=== PATIENT | male | born 1930 | race Caucasian/White ===

== ENCOUNTER 2018-03-09 08:47 | Inpatient (IN) | payer MEDICARE, BC ==
[~2018-03-09] VITALS: Ht 165.1 cm; Wt 88.1 kg
--- NOTE | 2018-03-09 08:50 | NUR ---
PT TO ED ROOM 08. BIB RA FROM HOME C/O SOB SINCE LAST NIGHT. A/A/O. PLACED ON NR @ 15 L/M. SIDE RAIS LUP. HOB ELEVATED. CONNECTED TO MONITOR. CHANGED TO PARTH. ALBERTO OLIVAS AT BEDSIDE.
--- NOTE | 2018-03-09 08:55 | NUR ---
Racquel doyle in EDM - 03/09/18 at 0856 by CHELSEA FLAQUITO VAUGHAN (APPEARS LIKE) CECILE. FLASHED WITH 10CC 0.9% NS.
--- NOTE | 2018-03-09 08:56 | NUR ---
LUE MIDLINE (APPEARS LIKE) POA. FLASHED WITH 10CC 0.9% NS.
--- NOTE | 2018-03-09 09:11 | NUR ---
R FA G 20 IV STARTED, BLOOD TESTS DRAWN AND SEND TO [facility]
[2018-03-09] MEDS ORDERED: LORA-259 PO (09:20)
[2018-03-09] MEDS ORDERED: IPRA12.9 INH (09:20)
[2018-03-09] MEDS ORDERED: INSU100V11 SQ (09:20)
[2018-03-09] MEDS ORDERED: CHOL200026 PO (09:20)
[2018-03-09] MEDS ORDERED: APIX2.5T PO (09:20)
[2018-03-09] MEDS ORDERED: ACET-868 PO (09:20)
[2018-03-09] MEDS ORDERED: INSU100V7 SQ (09:20)
[2018-03-09] MEDS ORDERED: FERR325T24 PO (09:20)
[2018-03-09] MEDS ORDERED: HYDR-552 PO (09:20)
[2018-03-09] MEDS ORDERED: MAGN64TA9 PO (09:20)
[2018-03-09] MEDS ORDERED: GABA-532 PO (09:20)
[2018-03-09] MEDS ORDERED: ASPI-992 PO (09:20)
[2018-03-09] MEDS ORDERED: FURO20TA4 PO (09:20)
[2018-03-09] MEDS ORDERED: SIMV40TA5 PO (09:20)
[2018-03-09] MEDS ORDERED: OMEP20TA5 PO (09:20)
[2018-03-09] MEDS ORDERED: DILT360T13 PO (09:20)
[2018-03-09] MEDS ORDERED: CARV6.252 PO (09:20)
[2018-03-09] MEDS ORDERED: FLUT16SP BNOSTRILS (09:20)
[2018-03-09] MEDS ORDERED: CYAN10009 PO (09:20)
[2018-03-09 09:21] LABS: EOSINOPHILS % (AUTO) 0.4 % (0.0-6.0); HEMATOCRIT 28 % (39-51); HEMOGLOBIN 9.3 g/dL (13.5-17.5); LYMPHOCYTES # (AUTO) 1.1 /CMM (0.8-4.8); LYMPHOCYTES % (AUTO) 5.9 % (20.0-44.0); MEAN CORPUSCULAR HGB CONC 33 g/dl (31.0-36.0); MEAN CORPUSCULAR VOLUME 93 fL (80-96); NEUTROPHILS # (AUTO) 15.3 /CMM (1.8-8.9); NEUTROPHILS % (AUTO) 82.7 % (43.0-81.0); PLATELET COUNT (AUTO) 133 /CMM (150-450); RED BLOOD CELL COUNT(AUTO) 3.07 MIL/uL (4.5-6.0); WHITE BLOOD COUNT (AUTO) 18.5 K/uL (4.3-11.0)
--- NOTE | 2018-03-09 09:24 | NUR ---
PT PLACED ON NC @ 3 L/M, SATURATION 94%.
[2018-03-09] MEDS ORDERED: FUROSEMIDE 40 MG/4 ML VIAL IV ONE (09:30)
[2018-03-09 09:34] LABS: CALCIUM, SERUM 8.3 mg/dL (8.5-10.1); CARBON DIOXIDE 29 mmol/L (21-32); CHLORIDE 106 mmol/L (98-107); CREATININE 1.6 mg/dL (0.6-1.3); GLUCOSE 136 mg/dL (74-106); POTASSIUM 4.1 mmol/L (3.5-5.1); SODIUM SERUM 141 mmol/L (136-145); UREA NITROGEN, BLOOD 29 mg/dL (7-18)
[2018-03-09 09:41] LABS: TROPONIN I < 0.017 ng/mL (0.00-0.056)
[2018-03-09 09:43] LABS: INR 1.17 (0.87-1.13)
[2018-03-09 09:45] LABS: ALANINE AMINOTRANSFERASE 30 U/L (12-78); ALBUMIN 2.5 g/dL (3.4-5.0); ALKALINE PHOSPHATASE 197 U/L (46-116); ASPARTATE AMINOTRANSFERASE 50 U/L (15-37); B-TYPE NATRIURETIC PEPTIDE 8815 PG/ML (0-125); BILIRUBIN,DIRECT 0.2 mg/dL (0.0-0.2); BILIRUBIN,TOTAL 0.5 mg/dL (0.2-1.0); TOTAL PROTEIN, SERUM 6.7 g/dL (6.4-8.2)
[2018-03-09 10:06] LABS: ABG BASE EXCESS 2.3 mmol/L; ABG OXYGEN SATURATION 93.1 % (92.0-98.5); ABG PCO2 43.1 mmHg (35.0-45.0); ABG PH 7.417 (7.350-7.450); ABG PO2 71.1 mmHg (75.0-100.0); AaDO2 157.3 mmHg; COHb 0.5 % (0.5-1.5); MetHb 0.6 % (0.0-1.5); O2Hb 92.1 % (94.0-97.0); SITE, ABG Right Radial; VENT MODE, BG NASAL CANNULA
--- NOTE | 2018-03-09 10:55 | NUR ---
REPORT GIVEN TO REGIS YUAN [id number] FLAKO
[2018-03-09] MEDS ORDERED: ONDANSETRON HCL/PF 4 MG/2 ML VIAL IVP PRN (11:00)
[2018-03-09] MEDS ORDERED: MAGNESIUM CHLORIDE 64 MG TABLET.SA PO SCH (11:00)
[2018-03-09] MEDS ORDERED: MAG HYDROX/AL HYDROX/SIMETH 30 ML UDC PO PRN ×2 (11:00→11:15)
[2018-03-09] MEDS ORDERED: ACETAMINOPHEN 325 MG TABLET PO PRN ×4 (11:00→11:15)
[2018-03-09] MEDS ORDERED: ALBUTEROL FS 2.5 MG/0.5 ML VIAL.NEB NEB PRN (11:00)
[2018-03-09] MEDS ORDERED: APIXABAN 2.5 MG TABLET PO SCH ×2 (11:00→11:15)
[2018-03-09] MEDS ORDERED: HYDROCODONE/APAP 5/325MG 1 EACH TABLET PO PRN ×3 (11:00→15:15)
[2018-03-09] MEDS ORDERED: MAGNESIUM HYDROXIDE 30 ML UDC PO PRN ×2 (11:00→11:15)
[2018-03-09] MEDS ORDERED: LORAZEPAM 1 MG TABLET PO PRN (11:00)
[2018-03-09] MEDS ORDERED: IPRATROPIUM NEB FS 0.5 MG/2.5 ML AMPUL.NEB NEB PRN (11:00)
[2018-03-09] MEDS ORDERED: FLUTICASONE PROPIONATE 16 GM BOTTLE NS SCH (11:00)
[2018-03-09] MEDS ORDERED: CARVEDILOL 6.25 MG TABLET PO SCH (11:00)
[2018-03-09] MEDS ORDERED: BUMETANIDE INJ 8 MG in IV NS 0.9% 48 ML IV ONE ×2 (11:00→11:15)
[2018-03-09] MEDS ORDERED: GABAPENTIN 100 MG CAPSULE PO SCH (11:00)
[2018-03-09 11:15] VITALS: BP 141/51
--- NOTE | 2018-03-09 11:15 | NUR ---
TD RN OPENING PATIENT REPORTED TO ER WITH FAMILY FROM HOME FOR INCREASED SOB. RECEIVED PATIENT A/OX2 ANXIOUS WITH LABORED BREATHING ON ACTIVITY. ON 3LPM NC SAT 94%. PATIENT WITH FAMILY AT BEDSIDE AND STATE PATIENT IS DNR/DNI WHICH PATIENT STATES WELL. TELE AFIB 90'S-110'S WITH ACTIVITY. PATIENT NON AMBULATORY SECONDARY TO WEAKNESS PER FAMILY FOR WEEKS. PATIENT PRESENTED TO ER WITH SINGLE LUMEN PICC LINE THAT PER FAMILY WAS INSERTED ABOUT 3-4 WEEKS AGO. CLEAN DRY AND INTACT DRESSING DATED 03/05/18 AND PATENT. PATIENT STATES BREATHING IS BETTER AFTER MEDICATION (LASIX) IN ER. FAMILY STATES THEY DO NOT WANT ANY MORE DIAGNOSTICS COMPLETED OR BLOOD DRAWS PATIENT HAS BEEN IN AND OUT OF HOSPITALS/SNF FOR SAME THING AND IS NOT GETTING ANY BETTER. PER FAMILY PATIENT HAS BEEN ON AX FOR 8 WEEKS FOR BLE CELLULITIS WHICH IS COVERED WITH DRESSING AND WEEPING. PATIENT/FAMILY DO NOT WANT DRESSING CHANGE. ALL NEEDS IN REACH. VS STABLE. SAFETY PRECAUTIONS IN PLACE AND WILL MONITOR. HAILEY UPDATED ON PATIENT AND FAMILY REQUESTS.
[2018-03-09] MEDS: CHOLECALCIFEROL 1,000 UNIT TABLET (VIT D3) PO SCH (11:30)
[2018-03-09] MEDS: PANTOPRAZOLE 40 MG TABLET.DR PO SCH (11:38)
--- NOTE | 2018-03-09 11:45 | NUR ---
TD RN NOTES FAMILY AT BEDSIDE. UPDATING MED RECON. PER FAMILY PATIENT TAKES PAXIL 10 MG DAILY; PER HAILEY OK TO ORDER AND GIVE NOW. PER FAMILY PATIENT TAKES 1/2 5/325 NORCO Q2H; PER HAILEY OK TO ORDER. DR LEDESMA AT BEDSIDE. PER BALTAZAR ORDER DNR/DNI ON PATIENT. FAMILY REFUSING US ABD; DR ORR AWARE. RE ORDERED CARDIAC DIET PER HAILEY. PER HAILEY ORDER MILD ACHS SLIDING SCALE. HAILEY AWARE OF UPDATED MED RECON READY
[2018-03-09] MEDS ORDERED: FEE PK DOSING 1 MIN EA MC ONE (11:52)
[2018-03-09] MEDS ORDERED: PARO10TA86 PO (11:56)
[2018-03-09] MEDS ORDERED: NITR0.4T48 SL (11:56)
[2018-03-09] MEDS ORDERED: MULT-479 PO (11:56)
[2018-03-09 12:00] VITALS: BP 141/51
[2018-03-09] MEDS ORDERED: APIXABAN 2.5 MG TABLET PO ONE ×2 (12:00→17:00)
[2018-03-09] MEDS: BLOOD SUGAR DIAGNOSTIC 1 EACH STRIP IN SCH ×3 (12:30→22:00)
[2018-03-09] MEDS ORDERED: DEXTROSE 50%-WATER 50 ML DISP.SYRIN IV PRN (12:30)
[2018-03-09] MEDS ORDERED: HYDROCODONE/APAP 5/325MG 1 EACH TABLET PO ONE (12:30)
[2018-03-09] MEDS: LORAZEPAM 1 MG TABLET PO PRN ×2 (12:49→23:29)
[2018-03-09] MEDS: PAROXETINE HCL 10 MG TABLET PO SCH (12:49)
[2018-03-09] MEDS: VANCOMYCIN 0.75 GM in IV NS 0.9% 250 ML IV SCH (12:54)
[2018-03-09] MEDS: AZTREONAM 500 MG in IV NS 0.9% 50 ML IV SCH ×2 (12:54→21:00)
--- NOTE | 2018-03-09 12:56 | NUR ---
TD RN NOTES PATIENT AND STATING NO MORE DIAGNOSTICS, AX, OR MEDICATIONS. PATIENT WANTS TO BE COMFORT CARE. HAILEY AWARE AND AT BEDSIDE
[2018-03-09] MEDS ORDERED: AZTREONAM 1 G in IV NS 0.9% 100 ML IV SCH ×4 (13:00)
--- NOTE | 2018-03-09 14:00 | NUR ---
CANCELLED ECHO STUDY FOR PATIENT. HAILEY IS AWARE. PER HIS ADVICE, STATUS CHANGED FROM DNR TO TOTAL PATIENT CARE.
[2018-03-09] MEDS: ONDANSETRON HCL/PF 4 MG/2 ML VIAL IVP PRN (14:13)
[2018-03-09] MEDS: FENTANYL PF 100MCG/2ML AMPUL IV PRN (14:13)
[2018-03-09 15:59] LABS: APPEARANCE,URINE CLEAR (CLEAR); BILIRUBIN,URINE NEGATIVE (NEGATIVE); BLOOD, URINE NEGATIVE Ery/uL (NEGATIVE); COLOR,URINE YELLOW (YELLOW); KETONES,URINE NEGATIVE (NEGATIVE); LEUKOCYTE ESTERASE ,URINE NEGATIVE (NEGATIVE); NITRITE, URINE NEGATIVE (NEGATIVE); PH,URINE 5.5 (5.0-8.0); PROTEIN,URINE NEGATIVE (NEGATIVE); UGLUCOSE NEGATIVE (NEGATIVE); UROBILINOGEN,URINE 0.2 EU/dL (0.2)
[2018-03-09 16:00] VITALS: BP 125/64
[2018-03-09 16:12] LABS: CREATININE, URINE 24.2 MG/DL (30.0-125.0); URINE TOTAL PROTEIN 13.2 mg/dL (0-11.9)
[2018-03-09 16:25] LABS: THYROID STIMULATING HORMONE 4.215 uIU/mL (0.358-3.74)
[2018-03-09] MEDS: CARVEDILOL 6.25 MG TABLET PO SCH (16:30)
[2018-03-09] MEDS: GABAPENTIN 100 MG CAPSULE PO SCH (16:30)
--- NOTE | 2018-03-09 17:10 | NUR ---
PATIENT LINENS CHANGED AND CLEANED. PATIENT REFUSING US TO TAKE OFF UNDERWEAR TO CLEAN OR LOOK AT BOTTOM. LEFT LOWER EXTREMITY IS WEEPING AND COVERED IN PATIENT DRESSING FROM HOME; REFUSING DRESSING CHANGE. PLACED GUERO UNDER PATIENT LEGS TO HELP ABSORB. PATIENT ALLOWED CONDOM CATH; WILL MONITOR FOR PATENCY.
[2018-03-09 17:22] LABS: MAGNESIUM 0.9 mg/dL (1.8-2.4)
--- NOTE | 2018-03-09 17:34 | NUR ---
MS RN NOTES NOTIFIED HAILEY PATIENT MAGNESIUM LEVEL 0.9. EDUCATED ON COMPLICATIONS OF LOW MAG AND PATIENT. REFUSING MAG ADMINISTRATION. HAILEY AWARE.
[2018-03-09 18:29] LABS: EOSINOPHIL,URINE None Seen
[2018-03-09] MEDS: ALBUTEROL FS 2.5 MG/0.5 ML VIAL.NEB NEB SCH (19:14)
[2018-03-09] MEDS: IPRATROPIUM NEB FS 0.5 MG/2.5 ML AMPUL.NEB NEB SCH (19:14)
--- NOTE | 2018-03-09 19:30 | NUR ---
MS/RN NOTES: RECEIVED PT. IN BED SITTING AT THE SIDE OF THE BED W/ PRESENT. W/ O2 @ 2LPM VIA N/C SAT 94%. W/ DAVID PICC LINE SINGLE LUMEN PATENT AND INTACT W/ NO S/S OF INFECTION/INFILTRATION NOTED. W/ PITTING EDEMA NOTED OF BILATERAL LOWER EXTREMITIES. HAD CONDOM CATH INTACT DRAINING CLEAR YELLOW URINE. PT. HAS HOSPICE /COMFORT CARE EVAL. CALL LIGHT W/REACH. WILL CONTINUE TO MONITOR.
--- NOTE | 2018-03-09 19:32 | NUR ---
CLOSING PATIENT CURRENTLY GETTING BREATHING TREATMENT. O2 STABLE ON LOW FLOW OXYGEN. AT BEDSIDE. PATIENT SITTING AT EDGE OF BED AND AWARE WE WILL NOT GIVE FENT. ADMIN UNLESS IN BED DUE TO SAFETY REASONS; PATIENT STATES UNDERSTANDING AND WANTS TO FINISH BREATHING TX. SAFETY PRECAUTIONS IN PLACE. COMFORT NEEDS MET. PER FAMILY HOSPICE CO WILL COME AND EVAL AT 10AM TOMORROW AND DISCUSS DC PLACEMENT WELL. CARE ENDORSED TO KWABENA RAJAN FOR BHARATH
[2018-03-09 20:43] VITALS: BP 139/73
[2018-03-10] MEDS: ALBUTEROL FS 2.5 MG/0.5 ML VIAL.NEB NEB SCH ×4 (01:14→19:52)
[2018-03-10] MEDS: IPRATROPIUM NEB FS 0.5 MG/2.5 ML AMPUL.NEB NEB SCH ×4 (01:14→19:52)
[2018-03-10] MEDS: FENTANYL PF 100MCG/2ML AMPUL IV PRN ×5 (02:17→23:26)
[2018-03-10 03:59] VITALS: BP 133/81
[2018-03-10] MEDS: AZTREONAM 500 MG in IV NS 0.9% 50 ML IV SCH ×4 (05:56→21:50)
[2018-03-10 08:00] VITALS: BP 116/75
[2018-03-10] MEDS: VANCOMYCIN 0.75 GM in IV NS 0.9% 250 ML IV SCH (08:43)
[2018-03-10] MEDS: FLUTICASONE PROPIONATE 16 GM BOTTLE NS SCH (08:45)
[2018-03-10] MEDS: MAGNESIUM CHLORIDE 64 MG TABLET.SA PO SCH (08:46)
[2018-03-10] MEDS: CARVEDILOL 6.25 MG TABLET PO SCH ×2 (08:48→17:00)
[2018-03-10] MEDS: PANTOPRAZOLE 40 MG TABLET.DR PO SCH (08:49)
[2018-03-10] MEDS: PAROXETINE HCL 10 MG TABLET PO SCH (08:49)
[2018-03-10] MEDS: CHOLECALCIFEROL 1,000 UNIT TABLET (VIT D3) PO SCH (08:50)
[2018-03-10] MEDS: GABAPENTIN 100 MG CAPSULE PO SCH ×2 (08:50→17:41)
[2018-03-10] MEDS: BLOOD SUGAR DIAGNOSTIC 1 EACH STRIP IN SCH ×4 (08:50→22:30)
[2018-03-10] MEDS: INSULIN REGULAR, HUMAN 100 UNIT/ML 3 ML VIAL SQ PRN ×3 (09:04→22:48)
[2018-03-10] MEDS: ONDANSETRON HCL/PF 4 MG/2 ML VIAL IVP PRN ×2 (10:40→19:05)
[2018-03-10] MEDS: Magnesium 1GM/D5W 100ML PREMIX 100 ML IV SCH ×4 (11:44→17:40)
[2018-03-10 16:00] VITALS: BP 132/86
--- NOTE | 2018-03-10 19:00 | NUR ---
RN NOTE PT HAD HOSPICE EVALUATION, HE IS PLANNING TO GO HOME TOMORROW, PT FAMILY REFUSED MEDS EXCEPT THOSE FOR COMFORT. MAGNESIUM WAS REPLACED. PAIN MEDS GIVEN ORDERED AROUND THE CLOCK. WILL ENDORSE TO PULP BEATER
[2018-03-10 20:00] VITALS: BP 123/69
[2018-03-10] MEDS: LORAZEPAM 1 MG TABLET PO PRN (21:50)
[2018-03-10] MEDS: HYDROCODONE/APAP 5/325MG 1 EACH TABLET PO PRN (21:54)
[2018-03-11] MEDS: VANCOMYCIN 0.75 GM in IV NS 0.9% 250 ML IV SCH (01:00)
[2018-03-11] MEDS: ALBUTEROL FS 2.5 MG/0.5 ML VIAL.NEB NEB SCH ×3 (01:30→13:30)
[2018-03-11] MEDS: IPRATROPIUM NEB FS 0.5 MG/2.5 ML AMPUL.NEB NEB SCH ×3 (01:30→13:30)
[2018-03-11] MEDS: HYDROCODONE/APAP 5/325MG 1 EACH TABLET PO PRN (02:56)
[2018-03-11 04:00] VITALS: BP 117/73
[2018-03-11] MEDS: AZTREONAM 500 MG in IV NS 0.9% 50 ML IV SCH ×2 (04:09→13:00)
[2018-03-11] MEDS: ONDANSETRON HCL/PF 4 MG/2 ML VIAL IVP PRN (05:27)
[2018-03-11] MEDS: FENTANYL PF 100MCG/2ML AMPUL IV PRN ×3 (05:28→14:56)
[2018-03-11 06:43] LABS: CALCIUM, SERUM 8.3 mg/dL (8.5-10.1); CARBON DIOXIDE 27 mmol/L (21-32); CHLORIDE 104 mmol/L (98-107); CREATININE 1.2 mg/dL (0.6-1.3); GLUCOSE 251 mg/dL (74-106); POTASSIUM 4.3 mmol/L (3.5-5.1); SODIUM SERUM 141 mmol/L (136-145); UREA NITROGEN, BLOOD 26 mg/dL (7-18)
[2018-03-11 08:00] VITALS: BP 139/92
--- NOTE | 2018-03-11 08:00 | NUR ---
MS RN NOTES PATIENT IN BED RESTING NO SOB OR ACUTE DISTRESS NOTED. PATIENT ON COMFORT MEASURES ONLY. PATIENT ALERT, ORIENTED X1. SITTING AT THE SIDE OF HIS BED. BED IN LOW LOCKED POSITION. CALL LIGHT WITHIN REACH. BED IN LOW LOCKED POSITION . PATIENT WITH PICC LINE ON LEFT UPPER ARM INTACT PATENT. WILL CONTINUE TO MONITOR.
--- NOTE | 2018-03-11 08:00 | NUR ---
MS RN NOTES PATIENT IN BED RESTING NO SOB OR ACUTE DISTRESS NOTED. PATIENT ALERT, ORIENTED X1. APPEARS COMFORTABLE. DENIES ANY PAIN. BED IN LOW LOCKED POSITION. CALL LIGHT WITHIN REACH. WITH PICC ON LEFT UPPER ARM INTACT PATENT. WILL CONTINUE TO MONITOR.
[2018-03-11] MEDS: BLOOD SUGAR DIAGNOSTIC 1 EACH STRIP IN SCH ×2 (08:37→12:00)
[2018-03-11] MEDS: CHOLECALCIFEROL 1,000 UNIT TABLET (VIT D3) PO SCH (08:41)
[2018-03-11] MEDS: PAROXETINE HCL 10 MG TABLET PO SCH (08:41)
[2018-03-11] MEDS: PANTOPRAZOLE 40 MG TABLET.DR PO SCH (08:41)
[2018-03-11] MEDS: GABAPENTIN 100 MG CAPSULE PO SCH (08:41)
[2018-03-11] MEDS: CARVEDILOL 6.25 MG TABLET PO SCH (08:41)
[2018-03-11] MEDS: FLUTICASONE PROPIONATE 16 GM BOTTLE NS SCH (08:42)
[2018-03-11] MEDS: MAGNESIUM CHLORIDE 64 MG TABLET.SA PO SCH (08:43)
[2018-03-11] MEDS: INSULIN REGULAR, HUMAN 100 UNIT/ML 3 ML VIAL SQ PRN (08:44)
--- NOTE | 2018-03-11 11:26 | NUR ---
slag worker consult requested by manager farm Pippa Gomez regarding family requesting a spiritual clergy to come see the pt. since pt. is on hospice. Pippa Blue informed SW that pt. is open to a spiritual clergy from any [place]. CRISTOBAL contacted [facility] and spoke to Palma who informed SW that Father Kemar will come by to see the pt. in a few minutes. CRISTOBAL notified pt's RN Sonia.
--- NOTE | 2018-03-11 12:02 | NUR ---
MS RN NOTES PATIENT IN BED RESTING. FAMILY AT BEDSIDE WITH FITNESS CENTER ATTENDANT. WILL CONTINUE TO KEEP COMFORTABLE. FAMILY REFUSES ACCU CHECKS AND ANY KIND OF TREATMENT EXCEPT PAIN MEDICATIONS.
[2018-03-11] MEDS: LORAZEPAM 1 MG TABLET PO PRN (13:49)
[2018-03-11 16:27] VITALS: BP 132/70
--- NOTE | 2018-03-11 16:40 | NUR ---
MS YUAN NOTES PATIENT DISCHARGED HOME WITH [facility] WITH AMBULANCE. PATIENT KEPT COMFORTABLE . PATIENT HOUSE READY FOR PATIENT WITH ALL EQUIPMENT DELIVERED FROM HOSPICE. PATIENT TO BE ADMITTED INTO [facility] AT HOME. ALL DUE MEDICATIONS ADMINISTERED. ALL NEEDS MET. DISCHARGE EDUCATION PROVIDED TO FAMILY, VERBALIZED UNDERSTANDING. PICC LINE NOT REMOVED PER FAMILY REQUEST, MD MADE AWARE. ID BAND REMOVED. PATIENT AND FAMILY REFUSED PICTURES UPON DISCHARGE AGREED FOR WOUND CARE. WOUND CARE PERFORMED TOLERATED WELL. PATIENT TRANSFERRED TO HOME. DISCHARGE PROTOCOL FOLLOWED. Addendum: 03/11/18 at 1714 by BIPIN OWEN RN PATIENT WITH NO BELONGINGS FAMILY TOOK ALL BELONGING HOME, BELONGING LIST SIGNED.
== END 2018-03-11 16:18 | disposition hospice, home (50) | DRG 871 ==
LOC: ER 08:49 → TELE-TD 11:17 → MEDSG1 14:19
PROVIDERS: ADMIT Nurse Practitioner Acute Care; ATTEND Nurse Practitioner Acute Care
DX: A41.9 Sepsis, unspecified organism (principal); J18.9 Pneumonia, unspecified organism; J96.21 Acute and chronic respiratory failure with hypoxia; N17.0 Acute kidney failure with tubular necrosis; I50.33 Acute on chronic diastolic (congestive) heart failure; D68.59 Other primary thrombophilia; E11.22 Type 2 diabetes mellitus with diabetic chronic kidney disease; I13.0 Hypertensive heart and chronic kidney disease with heart failure and stage 1 through stage 4 chronic kidney disease, or unspecified chronic kidney disease; J44.0 Chronic obstructive pulmonary disease with (acute) lower respiratory infection; L03.90 Cellulitis, unspecified; I27.20 Pulmonary hypertension, unspecified; E83.42 Hypomagnesemia; I48.91 Unspecified atrial fibrillation; D63.8 Anemia in other chronic diseases classified elsewhere; I25.10 Atherosclerotic heart disease of native coronary artery without angina pectoris; E78.5 Hyperlipidemia, unspecified; K21.9 Gastro-esophageal reflux disease without esophagitis; Z87.891 Personal history of nicotine dependence; Z79.01 Long term (current) use of anticoagulants; Z66 Do not resuscitate; Z51.5 Encounter for palliative care; N18.9 Chronic kidney disease, unspecified; Z88.0 Allergy status to penicillin; D72.829 Elevated white blood cell count, unspecified; J84.10 Pulmonary fibrosis, unspecified; F32.9 Major depressive disorder, single episode, unspecified; E86.9 Volume depletion, unspecified
CPT/HCPCS: 36415; 36600; 71045-TC; 80048-TC; 80061-TC; 80076-TC; 81000-TC; 82306; 82570-TC; 82728-TC; 82962-TC; 83540-TC; 83735-TC; 83880; 84100-TC; 84155-TC; 84300-TC; 84439-TC; 84443-TC; 84484-TC; 85025-TC; 85730-TC; 87081-TC; A4216; A4349; A4606; A6253; A6403; J1815; J2405; J3010; J3370; J3475; J3490; J7030; J7050; Z7610